=== PATIENT | female | born 1955 | race Caucasian/White ===

== ENCOUNTER → 2023-04-11 06:56 | Outpatient (REF) | payer OTHER, SELFPAY | LOC: WDC 06:56 | PROVIDERS: ATTENDING PHYSICIAN Obstetrics & Gynecology Gynecology; FAMILY PHYSICIAN Family Medicine | DX: Z12.31 Encounter for screening mammogram for malignant neoplasm of breast (principal) | CPT/HCPCS: 77063; 77067 ==

== ENCOUNTER → 2023-07-16 06:42 | Outpatient (REF) | payer OTHER, SELFPAY | LOC: MRI 06:42 | PROVIDERS: ATTENDING PHYSICIAN Physician Assistant; FAMILY PHYSICIAN Family Medicine | DX: M25.561 Pain in right knee (principal) | CPT/HCPCS: 73721 ==

== ENCOUNTER → 2023-08-15 14:05 | Outpatient (REF) | payer OTHER, SELFPAY | LOC: RCS 14:05 | PROVIDERS: ATTENDING PHYSICIAN Orthopaedic Surgery; FAMILY PHYSICIAN Family Medicine | DX: Z01.818 Encounter for other preprocedural examination (principal) | CPT/HCPCS: 93005 ==

== ENCOUNTER → 2023-10-08 11:24 | Outpatient (REF) | payer OTHER, SELFPAY | LOC: RAD 11:24 | PROVIDERS: ATTENDING PHYSICIAN Family Medicine | DX: Z00.01 Encounter for general adult medical examination with abnormal findings (principal); M81.0 Age-related osteoporosis without current pathological fracture | CPT/HCPCS: 77080 ==

== ENCOUNTER → 2023-11-28 06:24 | Day surgery (SDC) | payer OTHER, SELFPAY | LOC: GI 06:24 | PROVIDERS: ATTENDING PHYSICIAN Internal Medicine Gastroenterology | DX: Z12.11 Encounter for screening for malignant neoplasm of colon (principal); D49.0 Neoplasm of unspecified behavior of digestive system; K57.30 Diverticulosis of large intestine without perforation or abscess without bleeding; K62.1 Rectal polyp | CPT/HCPCS: 45380; 88305 ==

== ENCOUNTER → 2024-04-28 08:04 | Outpatient (REF) | payer OTHER, SELFPAY | LOC: WDC 08:04 | PROVIDERS: ATTENDING PHYSICIAN Obstetrics & Gynecology Gynecology; FAMILY PHYSICIAN Family Medicine | DX: Z12.31 Encounter for screening mammogram for malignant neoplasm of breast (principal) | CPT/HCPCS: 77063; 77067 ==